=== PATIENT | male | born 1995 | race African-American/Black ===

== ENCOUNTER 2016-06-24 19:41 | Emergency (ER) | payer MEDICAID, OTHER ==
[~2016-06-24] VITALS: Ht 177.8 cm; Wt 95.3 kg
[~2016-06-24 19:41] MED LIST: HYDROCORTISONE28 G5 TP; IBUPROFEN600 MG ORAL; UNOBMED
[2016-06-24] MEDS ORDERED: DEBROX15 M1 BOTH EARS (20:12)
[2016-06-24] MEDS ORDERED: AUGMENTIN 875-1 EAC1 ORAL (20:12)
[2016-06-24] MEDS ORDERED: SUDAFED PE PRE1 EAC3 PO (20:12)
[2016-06-24] MEDS ORDERED: FLONASE ALLERG9.9 ML NS (20:12)
[2016-06-24 20:20] VITALS: BP 131/84
--- NOTE | 2016-06-24 21:11 | Emergency Room Report ---
History of Present Illness General Chief Complaint: Sore Throat Source: Patient Present Illness HPI 20 YO M with sore throat for 1 week associated with sinus congestion, frontal sinus headache, bilateral ear congestion. Denies fever/chills, headache, neck pain. Allergies: Coded Allergies: No Known Allergies (Unverified , 02/25/13) Patient History Past Medical History: none Past Surgical History: none Pertinent Family History: none Social History: Denies: alcohol use, drug use, smoking Immunizations: UTD Reviewed Nursing Documentation: PMH: Agreed, PSxH: Agreed Nursing Documentation-PMH Past Medical History: No Stated History Review of Systems All Other Systems: negative except mentioned in HPI Physical Exam Vital Signs Date Time Temp Pulse Resp B/P Pulse Ox O2 Delivery O2 Flow Rate FiO2 06/24/16 20:08 98.1 75 16 131/84 100 Room Air Sp02 EP Interpretation: reviewed, normal General Appearance: normal inspection, well appearing, no apparent distress, alert Head: normocephalic, atraumatic, other - Bilateral frontal sinus ttp Eyes: bilateral eye EOMI, bilateral eye PERRL ENT: normal ENT inspection, hearing grossly normal, normal pharynx, no angioedema, normal voice, TMs + canals normal, uvula midline, moist mucus membranes, nasal congestion Neck: normal inspection, full range of motion, supple, no meningismus, no bony tend Respiratory: normal inspection, lungs clear, normal breath sounds, no respiratory distress, no retraction, no accessory muscle use, no wheezing, speaking full sentences Cardiovascular #1: regular rate, rhythm, no edema Gastrointestinal: normal inspection, normal bowel sounds, non tender, soft, no guarding, no hernia Genitourinary: no CVA tenderness Musculoskeletal: normal inspection, back normal, normal range of motion, Eileen' s Sign negative Neurologic: normal inspection, alert, oriented x3, responsive, svp programmatic tv III-XII nml as tested, motor strength/tone normal, speech normal Psychiatric: normal inspection, judgement/insight normal, mood/affect normal Skin: normal inspection, normal color, no rash Medical Decision Making Diagnostic Impression: Primary Impression: Sinusitis Qualified Codes: J01.10 - Acute frontal sinusitis, unspecified ER Course 20 YOM with sinus pressure headache, possibly sinusitis Rx Abx with symptomatic relief Rx as well No obvious source of bacterial infection in oropharynx, ears, lungs, skin, abdomen on exam Well appearing Sudafed and Flonase as needed sinus congestion PMD followup DC home Understands to return for worsening symptoms - Follow up with your primary care doctor in 2-3 days Last Vital Signs Date Time Temp Pulse Resp B/P Pulse Ox O2 Delivery O2 Flow Rate FiO2 06/24/16 20:20 98.1 16 131/84 100 Room Air 06/24/16 20:08 75 Status: improved Disposition: HOME, SELF-CARE Condition: Improved Scripts Carbamide Peroxide (DEBROX) 15 Ml Drops 5 DROP BOTH EARS TWICE A DAY for 4 Days, ML 0 Refills Prov: MALACHI CARLOS M.D. 06/24/16 Guaifen/Phenyleph/Acetaminophn (Sudafed PE Pressure+Pain+Mucus) 1 Each Tablet 1 EACH PO BID for sinus congestion for 5 Days, #20 TAB Prov: MALACHI CARLOS M.D. 06/24/16 Fluticasone Propionate (Flonase Allergy Relief) 9.9 Ml [place].susp 9.9 ML NS BID for 7 Days, #1 UNIT Prov: MALACHI CARLOS M.D. 06/24/16 Amoxicillin/Potassium Clav 875-125* (AUGMENTIN 875-125 TABLET*) 1 Each Tablet 1 TAB ORAL TWICE A DAY for 7 Days, #14 TAB Prov: MALACHI CARLOS M.D. 06/24/16 Referrals: [employer],REFERRIN (PCP) Patient Instructions: Sinusitis, Adult, [id number] Additional Instructions: - Take all the antibiotics as prescribed for sinusitis - Drink plenty of water especially before bed and first thing in morning - Use flonase spray twice daily and sudafed as needed for sinus congestion - Use ear drops to clean ears. STOP using Qtips MALACHI CARLOS M.D. Jun 24, 2016 21:11
== END 2016-06-24 20:20 | disposition home or self-care (01) ==
LOC: EMR 20:05
DX: J32.9 Chronic sinusitis, unspecified (principal)
CPT/HCPCS: 99284

== ENCOUNTER 2017-01-13 23:25 | Emergency (ER) | payer OTHER ==
[~2017-01-13] VITALS: Ht 177.8 cm; Wt 93.0 kg
[~2017-01-13 23:25] MED LIST changes: +AUGMENTIN 875-1 EAC1 ORAL; +DEBROX15 M1 BOTH EARS; +FLONASE ALLERG9.9 ML NS; +SUDAFED PE PRE1 EAC3 PO
[2017-01-14] MEDS ORDERED: ZOFRAN ODT4 MG ORAL (00:48)
[2017-01-14 00:51] VITALS: BP 128/77
[2017-01-14 01:00] VITALS: BP 131/80
--- NOTE | 2017-01-16 06:53 | Emergency Room Report ---
History of Present Illness General Chief Complaint: General Complaint Source: Patient Present Illness HPI Patient presents complaining that he had low-grade fever several days ago it has improved, patient also complains that he was in contact with someone who has staph infection and would like to be tested for that Denies any chest pain or shortness of breath denies any cough Denies any dysuria frequency denies any abdominal pain at this time Denies any vomiting or diarrhea Denies any flank pain Allergies: Coded Allergies: No Known Allergies (Unverified , 02/25/13) Patient History Past Medical History: see triage record Pertinent Family History: none Reviewed Nursing Documentation: PMH: Agreed, PSxH: Agreed Nursing Documentation-PMH Past Medical History: No Stated History Review of Systems All Other Systems: negative except mentioned in HPI Physical Exam Vital Signs Date Time Temp Pulse Resp B/P (MAP) Pulse Ox O2 Delivery O2 Flow Rate FiO2 01/13/17 23:55 97.9 70 18 134/73 98 Room Air Sp02 EP Interpretation: reviewed, normal General Appearance: well appearing, no apparent distress Head: normocephalic, atraumatic Eyes: bilateral eye PERRL, bilateral eye EOMI ENT: hearing grossly normal, normal pharynx, TMs + canals normal, uvula midline Neck: full range of motion, supple, no meningismus, no bony tend Respiratory: lungs clear, normal breath sounds, no rhonchi, no respiratory distress, no retraction, no accessory muscle use Cardiovascular #1: normal peripheral pulses, regular rate, rhythm, no edema, no gallop, no JVD, no murmur Gastrointestinal: normal bowel sounds, non tender, soft, no mass, no organomegaly, non-distended, no guarding, no hernia, no pulsatile mass, no rebound Genitourinary: no CVA tenderness Musculoskeletal: normal inspection Neurologic: oriented x3, responsive, industrial safety and health manager III-XII nml as tested, motor strength/ tone normal, sensory intact Psychiatric: mood/affect normal Skin: other - Eczema bilateral antecubital fossa, no secondary signs of infection Lymphatic: normal inspection, no adenopathy Medical Decision Making Diagnostic Impression: Primary Impression: eczema ER Course Multiple differentials considered Given the patient's previous complaints of fever Abdominal exam reveals a soft abdomen Patient is essentially otherwise asymptomatic otherwise at this time I do not feel that further testing was required given his presentation He does show evidence of eczema He reports that he has had this before at this time is stable for close outpatient followup Last Vital Signs Date Time Temp Pulse Resp B/P (MAP) Pulse Ox O2 Delivery O2 Flow Rate FiO2 01/14/17 01:00 98.2 70 18 131/80 99 Room Air Status: improved Disposition: HOME, SELF-CARE Condition: Stable Scripts Ondansetron Odt* (ZOFRAN ODT*) 4 Mg Tab.rapdis 4 MG ORAL Q6H Y for Nausea & Vomiting, #12 TAB 0 Refills Prov: ANGELIKA POLANCO D.O. 01/14/17 Referrals: [employer] [facility] [employer],REFERRIN (PCP) Departure Forms: Return to Work Return to Work in (Days): 1 Return to Work Date: Jan 15, 2017 Patient Instructions: Eczema, Nausea and Vomiting, Adult Additional Instructions: Patient is provided with the discharge instructions notified to follow up with primary doctor in the next 2-3 days otherwise return to the er with any worsening symptoms. Please note that this report is being documented using [employer] technology. This can lead to erroneous entry secondary to incorrect interpretation by the dictating instrument. ANGELIKA POLANCO D.O. Jan 16, 2017 06:53
== END 2017-01-14 01:00 | disposition home or self-care (01) ==
LOC: EMR 01-14 00:40
DX: L30.9 Dermatitis, unspecified (principal)
CPT/HCPCS: 99282

== ENCOUNTER 2020-03-17 23:23 | Emergency (ER) | payer OTHER ==
[~2020-03-17] VITALS: Ht 177.8 cm; Wt 81.6 kg
[~2020-03-17 23:23] MED LIST changes: +ZOFRAN ODT4 MG ORAL
--- NOTE | 2020-03-17 23:48 | NUR ---
ED Nurse Note: Patient walked into the ED from home with c/o SOB onset few days ago. Pt stated he feels "something is in my airway like a phlegm and i cannot take it out". Pt also c/o back pain when breathing. O2 98% RA, no wheezing/ congestion upon assessment. Pt has hx of smoking. Patient denies CP, N/V/D, fever or chills. PT is AAOX4 and ambulatory.
--- NOTE | 2020-03-17 23:50 | NUR ---
ED Nurse Note: ERMD at bedside
[2020-03-17 23:55] VITALS: BP 123/80
--- NOTE | 2020-03-18 00:06 | Emergency Room Report ---
History of Present Illness General Chief Complaint: Upper Respiratory Illness Source: Patient Present Illness HPI This is a 24-year-old male with no past medical history. He presents with chief complaint of feeling short of breath and choking sensation. This is an ongoing problem going on for years. He used to live in [place] and has seen multiple doctors in emergency rooms for this problem. He never had knee follow-up as an outpatient with a specialist. He presented tonight with a similar symptoms. He said he felt like he is choking and cannot breathe. He felt like that there is mucus that he cannot get up. He said he has a hard time swallowing. He has no weight loss. No chest pain. No fever or chills. Said that he has numerous x- rays done and all were negative. Said that no one ever told him what his problem was. Denies any other complaint. Allergies: Coded Allergies: No Known Allergies (Unverified , 02/25/13) COVID-19 Screening Contact w/high risk pt: No Experienced COVID-19 symptoms?: Yes COVID-[address] JUDGE: No Patient History Past Medical History: see triage record, old chart reviewed Past Surgical History: none Pertinent Family History: none Social History: Denies: smoking Immunizations: other Reviewed Nursing Documentation: PMH: Agreed; PSxH: Agreed Nursing Documentation-PMH Past Medical History: No Stated History Review of Systems Eye: Denies: eye pain, blurred vision ENT: Denies: ear pain, nose congestion, throat swelling Respiratory: Reports: shortness of breath; Denies: cough Cardiovascular: Denies: chest pain, palpitations Gastrointestinal: Denies: abdominal pain, diarrhea, nausea, vomiting Musculoskeletal: Denies: back pain, joint pain Skin: Denies: rash Neurological: Denies: headache, numbness Endocrine: Denies: increased thirst, increased urine Hematologic/Lymphatic: Denies: easy bruising All Other Systems: negative except mentioned in HPI Physical Exam Vital Signs Date Time Temp Pulse Resp B/P (MAP) Pulse Ox O2 Delivery O2 Flow Rate FiO2 03/17/20 23:31 98.2 67 16 123/80 (94) 98 Room Air Vitals normal Sp02 EP Interpretation: reviewed, normal General Appearance: well appearing, no apparent distress, alert Head: normocephalic, atraumatic Eyes: bilateral eye PERRL, bilateral eye EOMI ENT: hearing grossly normal, normal pharynx Neck: full range of motion, supple, no meningismus Respiratory: chest non-tender, lungs clear, normal breath sounds Cardiovascular #1: regular rate, rhythm, no murmur Gastrointestinal: normal bowel sounds, non tender, no mass, no organomegaly, no bruit, non-distended Musculoskeletal: back normal, normal range of motion, gait/station normal Psychiatric: depressed affect Medical Decision Making Diagnostic Impression: Primary Impression: Dysphagia Qualified Codes: R13.10 - Dysphagia, unspecified ER Course Patient presents with dysphagia and dyspnea. I suspect this is more psychological than medical or anatomical in nature. He is oxygenating normally. Even with his swallowing difficulty, he has no weight loss. He not short of breath. I recommend outpatient follow-up with GI doctor for endoscopy. I see no need for repeat x-ray here. Last Vital Signs Date Time Temp Pulse Resp B/P (MAP) Pulse Ox O2 Delivery O2 Flow Rate FiO2 03/17/20 23:55 98.2 16 123/80 98 Room Air 03/17/20 23:55 67 Status: unchanged Disposition: HOME, SELF-CARE Condition: Stable Referrals: NON PHYSICIAN (PCP) Additional Instructions: Follow-up with your doctor in 7 days. You will need a referral to see a GI doctor for endoscopy. Unfortunately, there is not much else can be done in the ER. Return if symptoms worsen. Chilo Medina MD Mar 18, 2020 00:06
[2020-03-18 00:15] VITALS: BP 124/80
--- NOTE | 2020-03-18 00:15 | NUR ---
ER DISCHARGE NOTE: Patient is cleared to be discharged per ERMD, pt is aox4, on room air, with stable vital signs. pt was given dc and prescription instructions, pt was able to verbalize understanding, pt id band removed. pt is able to ambulate with steady gait. pt took all belongings.
== END 2020-03-18 00:27 | disposition home or self-care (01) ==
LOC: EMR 23:46
DX: R13.10 Dysphagia, unspecified (principal); R06.02 Shortness of breath
CPT/HCPCS: 99281

== ENCOUNTER 2020-03-19 20:23 | Emergency (ER) | payer OTHER ==
[~2020-03-19] VITALS: Ht 177.8 cm; Wt 95.3 kg
--- NOTE | 2020-03-19 20:27 | NUR ---
ED Nurse Note: Patient not in the waiting room.
[2020-03-19 20:35] VITALS: BP 123/82
--- NOTE | 2020-03-19 20:35 | NUR ---
ED Nurse Note: Patient from home and walked in due to throat pain and states difficulty in swallowing for a couple of months. AAOx4, no SOB. Afebrile. VSS.
--- NOTE | 2020-03-19 21:06 | Emergency Room Report ---
History of Present Illness General Chief Complaint: Sore Throat Source: Patient (Mckenzie Chairez DO) Present Illness HPI Patient states that he has chronic dysphagia. He describes his symptoms as difficulty swallowing. He states at times he feels that he is unable to swallow even water. He states he has been seen by multiple physicians previously and did get x-rays but there has never been a diagnosis or etiology identified. He states he continues to have the sensation that he cannot swallow. He denies recent illness. She denies pain. He denies sore throat. He denies cough or congestion. He denies fever or chills. He has no other complaints. (Mckenzie Chairez DO) Allergies: Coded Allergies: No Known Allergies (Unverified , 02/25/13) COVID-19 Screening Contact w/high risk pt: No Experienced COVID-19 symptoms?: Yes COVID-19 Testing performed HEAT TREATING FURNACE TENDER: No (Mckenzie Chairez DO) Patient History Past Medical History: none Social History: Denies: smoking, alcohol use, drug use Reviewed Nursing Documentation: PMH: Agreed; PSxH: Agreed (Mckenzie Chairez DO) Nursing Documentation-PMH Past Medical History: No Stated History (Mckenzie Chairez DO) Review of Systems All Other Systems: negative except mentioned in HPI (Mckenzie Chairez DO) Physical Exam Vital Signs Date Time Temp Pulse Resp B/P (MAP) Pulse Ox O2 Delivery O2 Flow Rate FiO2 16/20 20:32 98.2 77 16 123/82 (96) 100 Room Air Sp02 EP Interpretation: reviewed, normal General Appearance: no apparent distress, alert, GCS 15, non-toxic Head: normocephalic, atraumatic Eyes: bilateral eye normal inspection, bilateral eye PERRL ENT: hearing grossly normal, normal pharynx, no angioedema, normal voice Neck: normal inspection, full range of motion, thyroid normal, supple/symm/no masses Respiratory: chest non-tender, lungs clear, normal breath sounds, no respiratory distress, no retraction, no accessory muscle use, speaking full sentences Cardiovascular #1: regular rate, rhythm, no edema Rectal: deferred Musculoskeletal: back normal, normal range of motion, gait/station normal, non- tender Neurologic: alert, motor strength/tone normal, oriented x3, sensory intact, responsive, speech normal Psychiatric: judgement/insight normal, memory normal, mood/affect normal, no suicidal/homicidal ideation Skin: no rash, normal color (Mckenzie Chairez DO) Medical Decision Making Diagnostic Impression: Primary Impression: Dysphagia Additional Impression: Enlarged tonsils ER Course This patient has chronic dysphagia. Differential diagnosis includes globus sensation, pharyngeal or neck mass, thyromegaly or thyroid mass. Patient has been seen previously for the same symptoms. He has no evidence of true esophageal blockage as he is well-appearing and managing his secretions normally. Given the ongoing symptoms, I did obtain a CT soft tissue neck which showed (Mckenzie Chairez DO) ER Course Assumed care of the patient from the previous provider at approximately 2300. Please refer to initial note for full history and physical exam. Briefly, 24-year-old male presenting with months of dysphagia. Labs unremarkable. At the time of signout CTA of the neck is pending. Imaging shows bilateral enlarged tonsils. Symptoms have been present for multiple months and patient is without signs of active infection. I do not believe this constitutes acute tonsillitis and the long duration of the patient's and the patient's low Centor score. Do not believe antibiotics would impact his condition. He agrees and stated he did not want antibiotics at this time. He is scheduled to follow- up with ENT to discuss his symptoms and possible surgical intervention. He stable for outpatient follow-up. Copies of the labs and CT including discharge paperwork. Instructed to return with new or worsening symptoms. (Jesús Anders MD) CT/MRI/US Diagnostic Results CT/MRI/US Diagnostic Results : Imaging Test Ordered: CT ST neck: (Mckenzie Chairez DO) CT/MRI/US Diagnostic Results : Impression FINDINGS: VASCULATURE: Right common carotid artery: Unremarkable. No significant stenosis. No dissection or occlusion. Right internal carotid artery: Unremarkable. Extracranial segment is patent with no significant stenosis. No dissection or occlusion. Right external carotid artery: Unremarkable. No occlusion. Right vertebral artery: Unremarkable. No significant stenosis. No dissection or occlusion. Left common carotid artery: Unremarkable. No significant stenosis. No dissection or occlusion. Left internal carotid artery: Unremarkable. Extracranial segment is patent with no significant stenosis. No dissection or occlusion. Left external carotid artery: Unremarkable. No occlusion. Left vertebral artery: Unremarkable. No significant stenosis. No dissection or occlusion. Other vasculature: The neck vessels are patent. There is no evidence of dissection, pseudoaneurysm, or hemodynamically significant stenosis. NECK: Bones/joints: No acute fracture. No dislocation. Soft tissues: Unremarkable as visualized. No mass. Oropharynx: There is enlargement of the palatine tonsils. There is no discrete drainable fluid collection. CAROTID STENOSIS REFERENCE USING NASCET CRITERIA: % ICA stenosis = (1 - narrowest ICA diameter/diameter of distal cervical ICA) x 100. Mild - <50% stenosis. Moderate - 50-69% stenosis. Severe - 70-94% stenosis. Near occlusion - 95-99% stenosis. Occluded - 100% stenosis. IMPRESSION: Probable tonsillitis. No definite peritonsillar abscess. The neck vessels are patent. Dictated By: Maxx Wilcox M.D. Electronically Signed By:Maxx Wilcox M.D. Signed Date/Time03/19/20 5913 CC: Mckenzie Chairez DO (Jesús Anders MD) Last Vital Signs Date Time Temp Pulse Resp B/P (MAP) Pulse Ox O2 Delivery O2 Flow Rate FiO2 03/19/20 20:35 98.2 77 16 123/82 100 Room Air (Mckenzie Chairez DO) Disposition: HOME, SELF-CARE Condition: Stable Mckenzie Chairez DO Mar 19, 2020 21:06 Jesús Anders MD Mar 19, 2020 23:28
[2020-03-19] MEDS ORDERED: Omnipaque 350 100ml vial INJ PRN (21:15)
[2020-03-19 21:28] LABS: BASOPHILS % (AUTO) 2.3 % (0.0-2.0); EOSINOPHILS % (AUTO) 0.8 % (0.0-3.0); HEMATOCRIT 43.6 % (42.0-52.0); HEMOGLOBIN 14.8 G/DL (14.2-18.0); LYMPHOCYTES % (AUTO) 35.8 % (20.0-45.0); MEAN CORPUSCULAR VOLUME 73 FL (80-99); MONOCYTES % (AUTO) 8.3 % (1.0-10.0); NEUTROPHILS % (AUTO) 52.9 % (45.0-75.0); PLATELET COUNT 270 K/UL (150-450); RED BLOOD COUNT 5.98 M/UL (4.70-6.10); RED CELL DISTRIBUTION WIDTH 14.8 % (11.6-14.8); WHITE BLOOD COUNT 6.5 K/UL (4.8-10.8)
--- NOTE | 2020-03-19 22:08 | NUR ---
ED Nurse Note: Recieved a pt from SARINA Jaramillo. Pt is awake,A&Ox4, and vebal. Pt is compaling of sore throat and hard time swallowing. vitals are stable. we will keep monitoring the pt.
[2020-03-19 22:12] LABS: BLOOD UREA NITROGEN 9 mg/dL (7-18); CALCIUM 9.4 MG/DL (8.5-10.1); CARBON DIOXIDE 29 MMOL/L (21-32); CHLORIDE 103 MMOL/L (98-107); CREATININE 1.2 MG/DL (0.55-1.30); POTASSIUM 3.7 MMOL/L (3.5-5.1); SODIUM 139 MMOL/L (136-145)
--- NOTE | 2020-03-19 22:23 | NUR ---
ED Nurse Note: Resident went to ct scan with the radiologist.
--- NOTE | 2020-03-19 22:36 | NUR ---
ED Nurse Note: Pt is back from CT scan
--- NOTE | 2020-03-19 22:51 | Diagnostic Imaging Report ---
EXAM: CT Neck Without and With Intravenous Contrast CLINICAL HISTORY: DYSPHAGIA TECHNIQUE: Axial computed tomographic images of the neck without and with intravenous contrast. CTDI is 14.6 mGy and DLP is 459.3 mGy-cm. One or more of the following dose reduction techniques were used: automated exposure control, adjustment of the mA and/or kV according to patient size, use of iterative reconstruction technique. COMPARISON: None FINDINGS: VASCULATURE: Right common carotid artery: Unremarkable. No significant stenosis. No dissection or occlusion. Right internal carotid artery: Unremarkable. Extracranial segment is patent with no significant stenosis. No dissection or occlusion. Right external carotid artery: Unremarkable. No occlusion. Right vertebral artery: Unremarkable. No significant stenosis. No dissection or occlusion. Left common carotid artery: Unremarkable. No significant stenosis. No dissection or occlusion. Left internal carotid artery: Unremarkable. Extracranial segment is patent with no significant stenosis. No dissection or occlusion. Left external carotid artery: Unremarkable. No occlusion. Left vertebral artery: Unremarkable. No significant stenosis. No dissection or occlusion. Other vasculature: The neck vessels are patent. There is no evidence of dissection, pseudoaneurysm, or hemodynamically significant stenosis. NECK: Bones/joints: No acute fracture. No dislocation. Soft tissues: Unremarkable as visualized. No mass. Oropharynx: There is enlargement of the palatine tonsils. There is no discrete drainable fluid collection. CAROTID STENOSIS REFERENCE USING NASCET CRITERIA: % ICA stenosis = (1 - narrowest ICA diameter/diameter of distal cervical ICA) x 100. Mild - <50% stenosis. Moderate - 50-69% stenosis. Severe - 70-94% stenosis. Near occlusion - 95-99% stenosis. Occluded - 100% stenosis. IMPRESSION: Probable tonsillitis. No definite peritonsillar abscess. The neck vessels are patent.
[2020-03-19 23:16] VITALS: BP 123/82
--- NOTE | 2020-03-19 23:16 | NUR ---
ER DISCHARGE NOTE: Patient is cleared to be discharged per ERMD, pt is aox4, on room air, with stable vital signs. pt was given dc instructions, pt was able to verbalize understanding, pt id band and iv site removed without complications. pt is able to ambulate with steady gait. pt took all belongings.
== END 2020-03-19 23:16 | disposition home or self-care (01) ==
LOC: EMR 21:46
DX: R13.10 Dysphagia, unspecified (principal); J35.1 Hypertrophy of tonsils
CPT/HCPCS: 36415; 70491; 80048; 84439; 84443; 85025; Q9967; Z7502; 99284